=== PATIENT | female | born 1945 | race Hispanic/Latino ===

== ENCOUNTER → 2016-04-02 | Outpatient (CLI) | payer MEDICARE ==
--- NOTE | 2016-04-03 08:43 | MRI ---
Study: MRI of the Left Knee. Indication: M25.562 Technique: Multiplanar, multi sequence MRI of the left knee was obtained without intravenous contrast. Comparison: None. Findings: ACL, PCL, lateral collateral ligament complex intact. Mcl thickened and bowed indicating sequelae of a previous sprain. No acute tear. Near complete radial transsection posterior root attachment medial meniscus. Body extruded by 5 mm with prominent oblique undersurface tearing of the body. Undersurface flap fragment displaced into the meniscotibial gutter. Grade 4 chondral loss noted throughout the majority weight-bearing portion medial compartment with mild cortical remodeling. In addition there is a tiny subchondral fracture at the medial margin medial tibial plateau with extensive marrow edema at this site. Free edge fraying posterior horn and body lateral meniscus. Grade 1-2 chondrosis lateral compartment. Areas of grade 2 and 3 chondral thinning medial patellar facet extending to the apex with less pronounced grade 1/2 changes throughout the remainder of the patellofemoral compartment. Moderate size knee effusion. Moderate anterior subcutaneous edema. Impression: Radial transsection posterior root attachment medial meniscus with prominent oblique undersurface tearing of the extruded body as above. Tiny subchondral fracture medial tibial plateau. Tricompartmental chondrosis with changes most pronounced at the medial compartment where there is extensive grade 4 chondral loss. Remote MCL sprain. Moderate size knee effusion. Electronically signed by: Nathen Church MD 04/03/2016 08:41
== END | disposition home or self-care (01) ==
LOC: MRI 10:43
PROVIDERS: ATTEND Family Medicine
DX: M25.562 Pain in left knee (principal)

== ENCOUNTER → 2017-05-06 | Outpatient (CLI) | payer MEDICARE | LOC: GMAL 11:10 | PROVIDERS: ATTEND Family Medicine | DX: E03.9 Hypothyroidism, unspecified (principal); E55.9 Vitamin D deficiency, unspecified ==

== ENCOUNTER → 2017-08-09 | Outpatient (CLI) | payer MEDICARE | LOC: GMAL 11:16 | PROVIDERS: ATTEND Family Medicine | DX: D51.3 Other dietary vitamin B12 deficiency anemia (principal); E03.9 Hypothyroidism, unspecified; E55.9 Vitamin D deficiency, unspecified ==

== ENCOUNTER → 2017-08-12 | Outpatient (CLI) | payer MEDICARE ==
--- NOTE | 2017-08-12 12:26 | RAD ---
EXAM DESCRIPTION: Pelvis CLINICAL HISTORY: 72 years Female, HIP PN COMPARISON: None. TECHNIQUE: AP radiograph of the pelvis was performed. FINDINGS: The pelvic ring appears grossly intact on this single AP radiograph. No acute fracture or dislocation. Bilateral sacroiliac joints appear normal. Moderate osteoarthritis is noted in both hip joints worse on the left side. The visualized lumbo-sacral spine demonstrates mild degenerative changes. IMPRESSION: Moderate bilateral hip osteoarthritis, worse on the left side. Intact pelvic ring. Electronically signed by: Suzanne Cruz MD 08/12/2017 12:25 PM CDT
--- NOTE | 2017-08-12 12:26 | RAD ---
EXAM DESCRIPTION: Knee,Left Complete CLINICAL HISTORY: 72 years Female, OSTEOARTHRITIS OF KNEE TECHNIQUE: 3 views of the left knee were performed. COMPARISON: Radiographs of the left knee dated 04/02/2016. FINDINGS: The visualized bones appear well mineralized. No acute fracture or dislocation. Tricompartmental osteoarthritis is noted severe in the medial tibiofemoral compartment. Suprapatellar joint effusion is identified. The soft tissues appear grossly unremarkable. IMPRESSION: Tricompartmental osteoarthritis, severe in the medial tibiofemoral compartment. Suprapatellar joint effusion. Electronically signed by: Suzanne Cruz MD 08/12/2017 12:25 PM CDT
== END ==
LOC: RAD 09:02
PROVIDERS: ATTEND Orthopaedic Surgery
DX: M17.12 Unilateral primary osteoarthritis, left knee (principal); M16.0 Bilateral primary osteoarthritis of hip; M25.552 Pain in left hip

== ENCOUNTER → 2017-12-02 | Outpatient (CLI) | payer MEDICARE | LOC: LAB.NP 16:52 | PROVIDERS: ATTEND Nurse Practitioner Family | DX: I10 Essential (primary) hypertension (principal) ==

== ENCOUNTER → 2017-12-06 | Outpatient (CLI) | payer MEDICARE | LOC: LAB.NP 11:04 | PROVIDERS: ATTEND Nurse Practitioner Family | DX: I10 Essential (primary) hypertension (principal) ==

== ENCOUNTER → 2018-01-25 | Outpatient (CLI) | payer MEDICARE | LOC: GMAL 11:23 | PROVIDERS: ATTEND Family Medicine | DX: E03.9 Hypothyroidism, unspecified (principal); E55.9 Vitamin D deficiency, unspecified ==

== ENCOUNTER → 2018-03-08 | Outpatient (CLI) | payer MEDICARE | LOC: GMAL 12:14 | PROVIDERS: ATTEND Family Medicine | DX: E55.9 Vitamin D deficiency, unspecified (principal) ==

== ENCOUNTER → 2018-10-26 | Outpatient (CLI) | payer MEDICARE | LOC: MAMMO 14:00 | PROVIDERS: ATTEND Family Medicine | DX: Z12.31 Encounter for screening mammogram for malignant neoplasm of breast (principal) ==

== ENCOUNTER 2020-04-04 18:06 | Emergency (ER) | payer MEDICARE ==
[2020-04-04 18:36] VITALS: O2SAT 97
[2020-04-04] MEDS ORDERED: KETOROLAC TROMETHAMINE INJ 30 MG/ML VIAL IM ONE (18:53)
--- NOTE | 2020-04-04 19:08 | ED.PDOC ---
History of Present Illness - General Chief Complaint: Trauma Stated Complaint: fall 04/02/2020, right hip and shoulder pain Time Seen by Provider: 04/04/20 18:27 Source: patient, RN notes reviewed, Vital Signs reviewed, family Exam Limitations: no limitations - History of Present Illness Initial Comments: Patient is a 75-year-old white female who presents 2 days status post fall when she was outside and fell onto concrete. Patient complains of right chest wall pain that radiates into her shoulder. The pain is stabbing in nature. Nothing makes it better. It is worse with movement or palpation. Patient also has pain on the right side of her hip and sacrum. It is also stabbing in nature and worse with movement or palpation. Nothing makes it better. She has no radia tion of that pain. Patient is able to ambulate. The pain is moderate in intensity. Occurred: other - 2 days ago Severity: moderate Pain Location: chest, pelvis, upper extremity Method of Injury: fall Improving Factors: nothing Worsening Factors: movement Loss of Consciousness: no loss of consciousness Associated Symptoms (Fall): denies symptoms Allergies/Adverse Reactions: Allergies Erythromycin Allergy (Severe, Verified 04/04/20 18:36) Other "weeping rash all over" Home Medications: Ambulatory Orders Aspirin [Aspirin 81 Low Dose] 04/04/20 Hydrochlorothiazide 25 mg PO 04/04/20 Imipramine HCl 50 mg PO 04/04/20 Levothyroxine Sodium 50 mcg PO 04/04/20 Losartan Potassium 100 mg PO 04/04/20 Review of Systems - Review of Systems Constitutional: States: no symptoms reported, see HPI. Denies: chills, fever, malaise, weakness EENTM: States: no symptoms reported. Denies: eye pain, blurred vision, double vision Respiratory: States: no symptoms reported. Denies: cough, short of breath, stridor, wheezing Cardiology: States: no symptoms reported. Denies: chest pain, palpitations, syncope Gastrointestinal/Abdominal: States: no symptoms reported. Denies: abdominal pain, diarrhea, nausea, vomiting Genitourinary: States: no symptoms reported. Denies: dysuria, frequency Musculoskeletal: States: see HPI, back pain, joint pain. Denies: neck pain Skin: States: no symptoms reported. Denies: change in color, rash Neurological: States: no symptoms reported. Denies: tingling, tremors, weakness Endocrine: States: no symptoms reported. Denies: increased hunger, increased thirst, increased urine Hematologic/Lymphatic: States: no symptoms reported. Denies: blood clots, easy bleeding All other Systems: Reviewed and Negative Past Medical History (General) - Patient Medical History Hx Seizures: No Hx Stroke: No Hx Dementia: No Hx Asthma: No Hx of COPD: No Hx Cardiac Disorders: No Hx Congestive Heart Failure: No Hx Pacemaker: No Hx Hypertension: Yes Hx Thyroid Disease: Yes Hx Diabetes: No Hx Gastroesophageal Reflux: No Hx Renal Disease: No Hx Cancer: No Hx of HIV: No Hx Hepatitis C: No Hx MRSA: No Surgical History: Hysterectomy - Vaccination History Hx Tetanus, Diphtheria Vaccination: No Hx Influenza Vaccination: No Hx Pneumococcal Vaccination: No - Social History Hx Tobacco Use: Yes Hx Alcohol Use: No Family Medical History - Family History Mother Family History: No Known Hx Family Hypertension: Yes Physical Exam - Physical Exam General Appearance: Alert, Anxious, Obvious distress, Well Developed, Well Groomed, Well Hydrated, Well Nourished Head Injury: no evidence of injury Eye Exam: bilateral normal ENT Exam: hearing grossly normal, no evidence of ENT injury, no dental injury Neck Exam: non-tender, full range of motion, normal alignment Cardiovascular/Respiratory: regular rate, rhythm, no M/R/G, normal peripheral pulses, no JVD, normal breath sounds Gastrointestinal/Abdominal: normal bowel sounds, non tender, soft, no organomegaly Back Exam: no CVA tenderness, vertebral tenderness - Along the right sacrum Extremity Exam: no evidence of injury, normal range of motion, tenderness - Right shoulder 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 04/04/20 20:[address] X-[address] CT did not show any fractures. I suspect this is all secondary to contusion. Patient is improved after the IM Toradol. Plan on discharge home with follow-up with PCP. Patient to alternate Tylenol Motrin for pain control. I discussed this plan of care with the patient and she voices understanding and agreement. Nasim Chavez M.D. #[id number] - Results/Orders Results/Orders: EXAM DESCRIPTION: Shoulder,Right 2 or More Views CLINICAL HISTORY: 75 years Female, pain s/p fall COMPARISON: None. FINDINGS: No fracture or dislocation. Mild osteopenia Joint spaces are preserved. Soft tissues are within normal limits. IMPRESSION: No acute osseous abnormality. Electronically signed by: Hank Barrett DO 04/04/2020 7:20 PM EXAM DESCRIPTION: Hip,Right 2 Views CLINICAL HISTORY: 75 years Female, right hip pain s/p fall COMPARISON: Pelvic radiograph dated 08/12/2017. FINDINGS/IMPRESSION: No fracture or dislocation. Mild osteopenia Degenerative changes of the hip joint with acetabular osteophytes. Soft tissues are within normal limits. Electronically signed by: Hank Barrett DO 04/04/2020 7:20 PM EXAM DESCRIPTION: Chest,1 View CLINICAL HISTORY:75 years Female, pain s/p fall Comparison: Chest radiograph dated September 2017 FINDINGS-IMPRESSION: Chronic lung changes without focal consolidation. No pleural effusion. No pneumothorax. Cardiomediastinal silhouette is within normal limits. No acute osseous abnormality. Thoracic dextroscoliosis. 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 COMPARISON: None. PROCEDURE: Multiple transaxial tomograms of the pelvis were obtained utilizing 2.5 mm by thickness at 2.5 mm interval reconstruction without the administration of IV contrast. 2-D multiplanar reformats in sagittal and coronal plane were generated and reviewed. An individualized dose optimization technique, Automated Exposure Control, was utilized for the performed procedure. FINDINGS: The visualized portions of the large and small bowel demonstrate to be unremarkable. There is a calculus within the lower pole of the right kidney measuring 13.3 mm on image 2/110. There is minimal atherosclerotic disease of the aorta and aortic bifurcation. The urinary bladder is unremarkable. The uterus is absent. There is no evidence for pelvic lymphadenopathy and/or ascites. Bone windows demonstrate posterior facet hypertrophy at the lower lumbar spine with questionable mild superior endplate compression deformity at L5. The sacrum, sacroiliac alae, sacroiliac joints demonstrate to be within normal limits. No definitive areas of cortical breakthrough and/or significant fracture could be seen. The iliac bones demonstrate to be intact. The superior, inferior pubic rami is unremarkable. Bilateral hip joint and proximal aspect of both femurs demonstrate to be within normal limits. IMPRESSION: RIGHT NEPHROLITHIASIS. ATHEROSCLEROTIC DISEASE DISTAL ABDOMINAL AORTA. STATUS POST HYSTERECTOMY. 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 Electronically signed by: Benny Dodd MD 04/04/2020 7:58 PM JETTING MACHINE OPERATOR - EKG/XRAY/CT CT Ordered: No Departure - Departure Clinical Impression: Contusion, shoulder and upper arm, multiple sites Qualifiers: Encounter type: initial encounter Laterality: right Qualified Code(s): S40.011A - Contusion of right shoulder, initial encounter; S40.021A - Contusion of right upper arm, initial encounter Contusion of sacral region Qualifiers: Encounter type: initial encounter Qualified Code(s): S30.0XXA - Contusion of lower back and pelvis, initial encounter Fall Qualifiers: Encounter type: initial encounter Qualified Code(s): W19.XXXA - Unspecified fall, initial encounter Time of Disposition: 20:09 Disposition: Discharge to Home or Self Care Condition: Good Departure Forms: ED Discharge - Pt. Copy, Patient Portal Self Enrollment Instructions: DI for Trauma, Contusion (DC), Bruised Rib (DC) Diet: resume usual diet Activity: increase activity as tolerated, walking as tolerated Referrals: VANESSA VILLALOBOS IV, [facility] [Primary Care Provider] - 1-5 Days Home Medications: Ambulatory Orders Aspirin [Aspirin 81 Low Dose] 04/04/20 Hydrochlorothiazide 25 mg PO 04/04/20 Imipramine HCl 50 mg PO 04/04/20 Levothyroxine Sodium 50 mcg PO 04/04/20 Losartan Potassium 100 mg PO 04/04/20
--- NOTE | 2020-04-04 19:19 | RAD ---
EXAM DESCRIPTION: Chest,1 View CLINICAL HISTORY:75 years Female, pain s/p fall Comparison: Chest radiograph dated September 2017 FINDINGS-IMPRESSION: Chronic lung changes without focal consolidation. No pleural effusion. No pneumothorax. Cardiomediastinal silhouette is within normal limits. No acute osseous abnormality. Thoracic dextroscoliosis. Electronically signed by: Hank Barrett DO 04/04/2020 7:18 PM RAILWAY HEAD TENDER
--- NOTE | 2020-04-04 19:21 | RAD ---
EXAM DESCRIPTION: Shoulder,Right 2 or More Views CLINICAL HISTORY: 75 years Female, pain s/p fall COMPARISON: None. FINDINGS: No fracture or dislocation. Mild osteopenia Joint spaces are preserved. Soft tissues are within normal limits. IMPRESSION: No acute osseous abnormality. Electronically signed by: Hank Barrett DO 04/04/2020 7:20 PM [facility]
--- NOTE | 2020-04-04 19:21 | RAD ---
EXAM DESCRIPTION: Hip,Right 2 Views CLINICAL HISTORY: 75 years Female, right hip pain s/p fall COMPARISON: Pelvic radiograph dated 08/12/2017. FINDINGS/IMPRESSION: No fracture or dislocation. Mild osteopenia Degenerative changes of the hip joint with acetabular osteophytes. Soft tissues are within normal limits. Electronically signed by: Hank Barrett DO 04/04/2020 7:20 PM [facility]
--- NOTE | 2020-04-04 19:59 | CT ---
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 COMPARISON: None. PROCEDURE: Multiple transaxial tomograms of the pelvis were obtained utilizing 2.5 mm by thickness at 2.5 mm interval reconstruction without the administration of IV contrast. 2-D multiplanar reformats in sagittal and coronal plane were generated and reviewed. An individualized dose optimization technique, Automated Exposure Control, was utilized for the performed procedure. FINDINGS: The visualized portions of the large and small bowel demonstrate to be unremarkable. There is a calculus within the lower pole of the right kidney measuring 13.3 mm on image 2/110. There is minimal atherosclerotic disease of the aorta and aortic bifurcation. The urinary bladder is unremarkable. The uterus is absent. There is no evidence for pelvic lymphadenopathy and/or ascites. Bone windows demonstrate posterior facet hypertrophy at the lower lumbar spine with questionable mild superior endplate compression deformity at L5. The sacrum, sacroiliac alae, sacroiliac joints demonstrate to be within normal limits. No definitive areas of cortical breakthrough and/or significant fracture could be seen. The iliac bones demonstrate to be intact. The superior, inferior pubic rami is unremarkable. Bilateral hip joint and proximal aspect of both femurs demonstrate to be within normal limits. IMPRESSION: RIGHT NEPHROLITHIASIS. ATHEROSCLEROTIC DISEASE DISTAL ABDOMINAL AORTA. STATUS POST HYSTERECTOMY. 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
[2020-04-04 20:20] VITALS: TEMP 97.3
[2020-04-04 20:22] VITALS: BP 132/88
== END 2020-04-04 20:22 | disposition home or self-care (01) ==
LOC: ER 18:06
DX: S40.021A Contusion of right upper arm, initial encounter (principal); S40.011A Contusion of right shoulder, initial encounter; S30.0XXA Contusion of lower back and pelvis, initial encounter; I10 Essential (primary) hypertension; E07.9 Disorder of thyroid, unspecified; Z87.891 Personal history of nicotine dependence; Z79.899 Other long term (current) drug therapy; Z79.82 Long term (current) use of aspirin; Z88.1 Allergy status to other antibiotic agents; W19.XXXA Unspecified fall, initial encounter; Y92.9 Unspecified place or not applicable
CPT/HCPCS: 71045; 72192; 73030; 73502; J1885

== ENCOUNTER 2020-04-05 20:22 | Emergency (ER) | payer MEDICARE ==
--- NOTE | 2020-04-05 20:37 | ED.PDOC ---
History of Present Illness - General Chief Complaint: Back Pain or Injury Stated Complaint: pain Above right breast Time Seen by Provider: 04/05/20 20:26 - History of Present Illness Initial Comments: Patient states she fell at home about 2 nights ago landing on the right side of her body. She tripped over her dog. There was no head injury loss of conscious. Patient was seen in our emergency department Yesterday and the day before for her injuries.X-rays were done. Patient is now complaining of persistent pain in the right upper anterior chest. She says the pain is mild at rest but is much worse with coughing. She denies any hemoptysis. She denies dyspnea. She denies fever chills or upper respiratory symptoms. Relative seems to recall that her blood pressure medicine sometimes makes her heart rate go up. Timing/Duration: other - 2 days Associated Symptoms: other - Coughing Allergies/Adverse Reactions: Allergies Erythromycin Allergy (Severe, Verified 04/04/20 18:36) Other "weeping rash all over" Home Medications: Ambulatory Orders Aspirin [Aspirin 81 Low Dose] 04/04/20 Hydrochlorothiazide 25 mg PO 04/04/20 Imipramine HCl 50 mg PO 04/04/20 Levothyroxine Sodium 50 mcg PO 04/04/20 Losartan Potassium 100 mg PO DAILY 04/04/20 Review of Systems - Review of Systems Constitutional: States: no symptoms reported EENTM: States: no symptoms reported Respiratory: States: see HPI Cardiology: States: see HPI Gastrointestinal/Abdominal: States: no symptoms reported Genitourinary: States: no symptoms reported Musculoskeletal: States: other - Pain in both hips due to the fall. Skin: States: no symptoms reported Neurological: States: no symptoms reported Endocrine: States: no symptoms reported Hematologic/Lymphatic: States: see HPI Past Medical History (General) - Patient Medical History Hx Seizures: No Hx Stroke: No Hx Dementia: No Hx Asthma: No Hx of COPD: No Hx Cardiac Disorders: No Hx Congestive Heart Failure: No Hx Pacemaker: No Hx Hypertension: Yes Hx Thyroid Disease: Yes Hx Diabetes: No Hx Gastroesophageal Reflux: No Hx Renal Disease: No Hx Cancer: No Hx of HIV: No Hx Hepatitis C: No Hx MRSA: No - Vaccination History Hx Tetanus, Diphtheria Vaccination: No Hx Influenza Vaccination: No Hx Pneumococcal Vaccination: No - Social History Hx Tobacco Use: Yes Hx Alcohol Use: No Family Medical History - Family History Mother Family History: No Known Hx Family Hypertension: Yes Physical Exam - Physical Exam General Appearance: Alert, Comfortable, Other - Head is atraumatic Eye Exam: bilateral normal Ears, Nose, Throat: hearing grossly normal, normal ENT inspection, normal p harynx Neck: non-tender, full range of motion, supple Respiratory: normal breath sounds, no respiratory distress, other - Right upper anterior chest tender in the subclavicular Area with modest bruising and no swelling or discoloration noted. No crepitus. 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 Medical decision makin-year-old female complaining of persistent pain in the right upper anterior chest following a fall occurring while tripping over her dog's. Patient complains of pain particularly when coughing but is not complaining of hemoptysis or dyspnea. CT scan EKG and blood work are all unremarkable. Patient has a tachycardia which is apparently pre-existing and related to her medications. She is suitable for outpatient symptomatic treatment. - Results/Orders Results/Orders: Electrocardiogram: Sinus tachycardia, 114/min, no acute interval changes, no acute STT changes. ROCEDURE: CT Chest w/o Contrast CLINICAL HISTORY: 75 years Female Trauma, right rib pain, tachycardia TECHNIQUE: Contiguous axial images obtained through the chest without IV contrast administration. Coronal and sagittal reformatted imag es provided. This CT exam was performed according to our departmental dose- optimization program, which includes one or more of the following dose reduction techniques: automated exposure control, adjustment of the mA and/or kV according to patient size, and/or use of iterative reconstruction technique. COMPARISON: No prior exams provided for comparison. FINDINGS: There is dextroconvex curvature of the thoracic spine with mild multilevel degenerative disc disease. There is no acute fracture or aggressive osseous lesion in the chest or thoracic spine. There is minimal bibasilar atelectasis. No airspace infiltrate, pleural effusion, or pneumothorax. The central airways are patent. The heart is normal in size without pericardial effusion. Mild atherosclerosis without thoracic aortic aneurysm or mediastinal hemorrhage. No lymphadenopathy in the chest. Colonic constipation noted in the upper abdomen. IMPRESSION: No acute findings in the chest. Electronically signed by: Nataly Ocampo MD 04/05/2020 9:51 PM INTERNET PROGRAMMER 04/05/20 21:00 EKG STAT Laboratory Results - last 24 hr 04/05/20 04/05/20 04/05/20 21:23 21:23 21:23 WBC 7.1 RBC 4.64 Hgb 13.7 Hct 41.2 MCV 88.8 MCH 29.5 MCHC 33.2 RDW 13.9 Plt Count 210 MPV 8.3 Absolute Neuts (auto) 4.60 Absolute Lymphs (auto) 1.30 Absolute Monos (auto) 0.70 Absolute Eos (auto) 0.40 Absolute Basos (auto) 0.10 Neutrophils % 65.2 Lymphocytes % 18.2 L Monocytes % 9.6 H Eosinophils % 5.8 H Basophils % 1.2 Sodium 135 Potassium 4.0 Chloride 98 L Carbon Dioxide 25 Anion Gap 16.0 BUN 19 H Creatinine 0.92 BUN/Creatinine Ratio 20.7 H Random Glucose 113 H Serum Osmolality 273.2 L Calcium 9.0 Total Bilirubin 0.4 AST 21 ALT 18 Alkaline Phosphatase 76 Creatine Kinase 59 CK-MB (CK-2) 1.5 CK-MB (CK-2) % Not Reportable Troponin I < 0.02 Serum Total Protein 8.2 Albumin 4.0 Globulin 4.2 H Albumin/Globulin Ratio 1.0 L TSH 9.43 H Vital Signs - 24 hr 04/05/20 20:35 Temperature 97.1 F L Pulse Rate [ 127 H left] Respiratory 22 Rate Blood Pressure 184/125 [Left Arm] O2 Sat by Pulse 97 Oximetry Departure - Departure Clinical Impression: Contusion Of chest wall, Acute chest wall pain, Fall, Hypertension, Tachycardia Time of Disposition: 22:12 Disposition: Discharge to Home or Self Care Condition: Good Departure Forms: ED Discharge - Pt. Copy, Patient Portal Self Enrollment Instructions: DI for Low Back Pain Diet: resume usual diet Activity: other - Avoid excessive movement or walking until you are feeling better. Referrals: VANESSA VILLALOBOS IV, [facility] [Primary Care Provider] - 1-2 Weeks Prescriptions: Acetaminophen W/ Codeine [Tylenol W/ CODEINE #3] 1 tab PO QID PRN 3 Days #12 tab PRN Reason: Pain Acetaminophen W/ Codeine [Tylenol W/ CODEINE #3] 1 tab PO QID 3 Days #12 tab Home Medications: Ambulatory Orders Aspirin [Aspirin 81 Low Dose] 04/04/20 Hydrochlorothiazide 25 mg PO 04/04/20 Imipramine HCl 50 mg PO 04/04/20 Levothyroxine Sodium 50 mcg PO 04/04/20 Losartan Potassium 100 mg PO DAILY 04/04/20 Additional Instructions: Use Robitussin-DM available [id number] for coughing. Use Tylenol For pain. Tylenol 3 prescription could not be filled by the electronic narcotic system because it was not excepted at [facility]. See Your private doctor if you feel you need this medication.
--- NOTE | 2020-04-05 21:52 | CT ---
PROCEDURE: CT Chest w/o Contrast CLINICAL HISTORY: 75 years Female Trauma, right rib pain, tachycardia TECHNIQUE: Contiguous axial images obtained through the chest without IV contrast administration. Coronal and sagittal reformatted images provided. This CT exam was performed according to our departmental dose-optimization program, which includes one or more of the following dose reduction techniques: automated exposure control, adjustment of the mA and/or kV according to patient size, and/or use of iterative reconstruction technique. COMPARISON: No prior exams provided for comparison. FINDINGS: There is dextroconvex curvature of the thoracic spine with mild multilevel degenerative disc disease. There is no acute fracture or aggressive osseous lesion in the chest or thoracic spine. There is minimal bibasilar atelectasis. No airspace infiltrate, pleural effusion, or pneumothorax. The central airways are patent. The heart is normal in size without pericardial effusion. Mild atherosclerosis without thoracic aortic aneurysm or mediastinal hemorrhage. No lymphadenopathy in the chest. Colonic constipation noted in the upper abdomen. IMPRESSION: No acute findings in the chest. Electronically signed by: Nataly Ocampo MD 04/05/2020 9:51 PM [facility]
[2020-04-05] MEDS ORDERED: ACETAMINOPHEN W/COD #3 TAB 1 EA TAB PO ONE (21:57)
[2020-04-05] MEDS ORDERED: ACETAMINOPHEN W/COD #3 TAB (ER Disp) PO ONE (22:22)
[2020-04-05 22:43] VITALS: BP 160/90; TEMP 97.2; O2SAT 97
== END 2020-04-05 22:44 | disposition home or self-care (01) ==
LOC: ER 20:22
DX: S20.211D Contusion of right front wall of thorax, subsequent encounter (principal); R00.0 Tachycardia, unspecified; M25.551 Pain in right hip; M25.552 Pain in left hip; I10 Essential (primary) hypertension; E07.9 Disorder of thyroid, unspecified; W01.0XXD Fall on same level from slipping, tripping and stumbling without subsequent striking against object, subsequent encounter; Y92.9 Unspecified place or not applicable; Z87.891 Personal history of nicotine dependence; Z79.82 Long term (current) use of aspirin; Z79.899 Other long term (current) drug therapy; Z88.1 Allergy status to other antibiotic agents